=== PATIENT | male | born 1945 | race Caucasian/White ===

== ENCOUNTER → 2017-05-23 | Outpatient (CLI) | payer MEDICARE ==
[~2017-05-23] MED LIST: ALBUTEROL SULF8.5 GM PO; AMIODARONE HCL200 MG PO; AMLODIPINE BESY10 MG; ATORVASTATIN CA10 MG PO; BENTYL10 MG PO; CETIRIZINE HCL10 MG PO; DIOVAN320 MG; LOMOTIL TABLET1 EACH PO; MEDROL4 MG PO; METOPROLOL TAR100 MG; NEXIUM40 M1; OMEPRAZOLE40 MG PO; SPIRIVA18 MCG INH
--- NOTE | 2017-05-23 11:28 | Diagnostic Imaging Report ---
PROCEDURE:THORACIC SPINE 2VW COMPARISON:None. INDICATIONS:BACK PAIN FINDINGS:No acute fracture or dislocation is present. No expansile lytic or sclerotic lesion. A metallic tipped catheter is present with the tip projecting over the expected region and in the thoracic spine. Partially visualized aortic endograft is present in the abdomen. The soft tissues are unremarkable. Kyphotic angulation of the thoracic spine is present. Degenerative changes are evidenced by anterior osteophytosis at multiple levels. He Compression fracture of L1. CONCLUSION: No acute radiographic abnormality. Degenerative changes of the thoracic spine. Age indeterminate compression fracture of L1. Dictated by: Jose Miguel Estrella M.D. on 05/23/2017 at 11:36 Electronically approved by: Jose Miguel Estrella M.D. on 05/23/2017 at 11:36
--- NOTE | 2017-05-23 11:34 | Diagnostic Imaging Report ---
CORRECTION Corrected on: 05/23/2017; Dictated by: Jose Miguel Estrella M.D. on 05/23/2017 at 13:10 Electronically approved by: Jose Miguel Estrella M.D. on 05/23/2017 at 13:10 PROCEDURE:L-SPINE COMPLETE COMPARISON:None. INDICATIONS:BACK PAIN FINDINGS: There are 5 lumbar-type vertebral bodies. Compression fracture of L1 vertebral body with 75% decrease of the vertebral body height. Multilevel degenerative changes evidenced by contrast the right this is bilateral facet arthrosis. Otherwise, the vertebral bodies are well-aligned without evidence of spondylolisthesis. There are no fractures, lytic or blastic lesions. The disc-space heights are well-maintained. The sacroiliac joints are unremarkable. Aortic endograft. CONCLUSION: No acute radiographic abnormality. Age indeterminate compression fracture of the L1 vertebral body. Dictated by: Jose Miguel Estrella M.D. on 05/23/2017 at 11:42 Electronically approved by: Jose Miguel Estrella M.D. on 05/23/2017 at 11:42
== END ==
LOC: RAD 09:14
PROVIDERS: ATTEND Internal Medicine
DX: M54.5 Low back pain (principal); W19.XXXA Unspecified fall, initial encounter
CPT/HCPCS: 72070; 72110

== ENCOUNTER 2018-07-23 18:30 | Emergency (ER) | payer MEDICARE ==
[~2018-07-23] VITALS: Ht 188 cm; Wt 93.0 kg
--- NOTE | 2018-07-23 20:20 | NUR ---
PT TO TAKE HOME MEDS FOR CURRENT ELEVATED BP
--- NOTE | 2018-07-23 21:31 | Diagnostic Imaging Report ---
History:Fall Comparison studies: Head CT on 10/19/2016 Technique: Axial images were obtained from the skull base to the vertex. Coronal and sagittal images reconstructed from the axial data. Dose modulation, iterative reconstruction, and/or weight based adjustment of the mA/kV was utilized to reduce the radiation dose to as low as reasonably achievable. Intravenous contrast: None Findings: Scalp/skull: No abnormalities. Extra-axial spaces: No masses. No fluid collections. Brain sulci: Moderately prominent. Ventricles: Moderate compensatory dilatation. No hydrocephalus. Parenchyma: Diffuse, confluent hypodensities throughout the supratentorial white matter are small vessel ischemic changes. Focal cortical encephalomalacic changes in the right anterior insula extend superiorly to the operculum. This is the result of the acute vascular insult seen in this region in 2017. Focal old cortical insults are also seen in the inferior cerebellar hemispheres. Old lacunar insults are centered in the right thalamocapsular region and in the midportion of the left thalamus. No masses, hemorrhage, acute or additional chronic cortical vascular insults. Sellar/suprasellar region: No abnormalities. Craniocervical junction: Patent foramen magnum. No Chiari one malformation. Incidental findings: Atherosclerotic calcifications in the carotid siphons and vertebral arteries. Nonobstructing retention cyst in the maxillary sinuses. Impression: No acute abnormalities. Chronic findings: 1. Moderate generalized volume loss. 2. Diffuse supratentorial white matter small vessel ischemic changes. 3. Cortical insult in the right anterior insula and overlying operculum (distal right MCA) was acute in 2017) 4. Additional cortical insults in the cerebellar hemispheres and lacunar insults (right thalamocapsular and left mid thalamus) Signed by: Dr. Jameel Aquino M.D. on 07/23/2018 9:28 PM
--- NOTE | 2018-07-23 21:36 | Diagnostic Imaging Report ---
History: Trauma Comparison studies: None Technique: Axial images were obtained through the cervical region.. Coronal and sagittal images reconstructed from the axial data. Dose modulation, iterative reconstruction, and/or weight based adjustment of the mA/kV was utilized to reduce the radiation dose to as low as reasonably achievable. Intravenous contrast: None Findings: Fractures: None. Soft tissues: No gross abnormalities. Atlantoaxial articulation: Intact. Alignment: Increased lordosis. No scoliosis. Cervicomedullary junction: No abnormalities. The foramen magnum is patent. Vertebrae: Bones are moderately demineralized. No infection or neoplasm. Degenerative changes: Mild at the atlantoaxial articulation. No significant changes in the discs. Mild facet arthrosis on the left at C3-4, moderate right at C5-6. Foraminal stenosis, mild left at C3-4, moderate right at C4-5 due to facet and uncovertebral arthrosis. Patent spinal canal. Incidental atherosclerotic calcifications in the carotid bulbs. IMPRESSION: 1. No acute abnormalities. 2. Cannot adequately evaluate for ligament, spinal cord and or vascular abnormalities. 3. Degenerative changes as described. Signed by: Dr. Jameel Aquino M.D. on 07/23/2018 9:33 PM
--- NOTE | 2018-07-23 22:31 | Diagnostic Imaging Report ---
SHOULDER LEFT COMPLETE - 3 views HISTORY: Pain status post fall. COMPARISON: None available. FINDINGS: Rotation/positioning somewhat limits evaluation. Bones: Irregularity of the humeral neck and head to prior traumatic injury, however, cannot exclude nondisplaced fracture. Joints: Mild degenerative changes of the glenohumeral and AC joints. Soft tissues: The soft tissues appear unremarkable. IMPRESSION: Concern for nondisplaced surgical humeral neck fracture. Recommend CT left shoulder without contrast. Signed by: Dr. Yamini Freeman M.D. on 07/23/2018 10:28 PM
--- NOTE | 2018-07-23 22:33 | Diagnostic Imaging Report ---
EXAMINATION: CHEST SINGLE (PORTABLE) INDICATION: Status post fall. COMPARISON: None FINDINGS: Examination somewhat limited due to rotation. TUBES and LINES: None. Pacemaker device projected on the lower lateral left hemithorax. Implantable loop recorder. LUNGS: Bilateral hyperinflation. Right basilar platelike atelectasis. There is no evidence of pneumonia or pulmonary edema. PLEURA: No pleural effusion or pneumothorax. HEART AND MEDIASTINUM: The cardiomediastinal silhouette is unremarkable. BONES AND SOFT TISSUES: Deformity of posterior lateral right sided ribs may represent prior traumatic injury however acute fracture not excluded. Remote left sided rib fractures. UPPER ABDOMEN: No free air under the diaphragm. IMPRESSION: Deformity of posterior lateral right sided ribs may represent prior traumatic injury however acute fracture not excluded. Correlate for right lateral chest wall pain, and if warranted, further evaluation with rib series. Signed by: Dr. Yamini Freeman M.D. on 07/23/2018 10:30 PM
--- NOTE | 2018-07-24 00:11 | Diagnostic Imaging Report ---
Exam: CT scan of the LEFT SHOULDER, WITHOUT intravenous contrast. TECHNIQUE: Standard departmental protocols were used. Post-contrast images were obtained without intravenous injection of contrast. Sagittal and coronal reformatted images were obtained. DLP: 1115.96 HISTORY: Pain status post fall. Fracture suspected on plain radiograph. COMPARISON: None. Correlation with left shoulder radiographs dated 07/23/2018. FINDINGS: The alignment is normal. There is no evidence of a focal bone or joint abnormality. The soft tissues are unremarkable. Emphysematous changes of the visualized left lung. IMPRESSION: No acute osseous abnormality. No fracture as suspected on plain radiograph. Signed by: Dr. Yamini Freeman M.D. on 07/24/2018 12:00 AM
--- NOTE | 2018-07-24 00:16 | Diagnostic Imaging Report ---
EXAM: CT Chest WITHOUT contrast 07/23/2018 10:39 PM INDICATION: Pain status post trauma. COMPARISON: None TECHNIQUE: Chest was scanned utilizing a multidetector helical scanner from the lung apex through the level of the adrenal glands without administration of IV contrast. Absence of intravenous contrast decreases sensitivity for detection of lymphadenopathy and vascular pathology. Coronal and sagittal reformations were obtained. Routine protocol was performed. IV CONTRAST: None RADIATION DOSE: Total DLP: 03/28/1996 mGy*cm Estimated effective dose: (DLP x 0.014 x size factor) mSv COMPLICATIONS: None FINDINGS: LINES/ TUBES: None. LUNGS AND AIRWAYS: Severe bilateral pulmonary emboli or emphysema most severely affecting upper lobes. Mild senescent fibrosis in the lower lobes. Right basilar atelectasis versus scarring associated with mild dilatation of the right hemidiaphragm. Airways are normal. PLEURA: The pleural spaces are clear. HEART AND MEDIASTINUM: The thyroid gland is normal. No mediastinal, hilar or axillary lymphadenopathy. The heart is There is no pericardial effusion. There are mild atherosclerotic calcifications in the aorta and coronary arteries. Dilatation of the ascending aorta measuring 4.9 x 4.8 cm on image 66 series 2. Dilatation of the aortic root measuring 4.6 x 4.8 cm on image 84. Mild dilatation of the descending thoracic aorta measuring 3.1 x 3.2 cm. UPPER ABDOMEN: Limited non-contrast views of the upper abdomen show no right renal atrophy. 4.8 cm abdominal aortic aneurysm status post stent graft placement not well evaluated without contrast. The adrenal glands are normal. BONES: Remote healed left sided rib fractures. Compression fractures of T12 and L1, status post kyphoplasty. L1 fracture is seen. Vertebral alignment. Thoracic kyphosis. There is a dorsal column neurostimulator device with electrodes in the upper thoracic spine. SOFT TISSUES: 3.3 cm oval cystic lesion in the subcutaneous lower anterior right hemithorax just to the right of the midline on image 125 series 2 suggestive of a sebaceous cyst. IMPRESSION: 1. No acute thoracic abnormality. 2. Severe pulmonary emphysema. 3. 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 Dilatation of the aortic root. Signed by: Dr. Yamini Freeman M.D. on 07/24/2018 12:12 AM
[2018-07-24 01:36] VITALS: BP 143/74
== END 2018-07-24 02:30 | disposition home or self-care (01) ==
LOC: ER 18:30
DX: S00.83XA Contusion of other part of head, initial encounter (principal); S40.012A Contusion of left shoulder, initial encounter; S20.229A Contusion of unspecified back wall of thorax, initial encounter; M54.6 Pain in thoracic spine; W01.0XXA Fall on same level from slipping, tripping and stumbling without subsequent striking against object, initial encounter; Y93.01 Activity, walking, marching and hiking; Y92.008 Other place in unspecified non-institutional (private) residence as the place of occurrence of the external cause; J44.9 Chronic obstructive pulmonary disease, unspecified; I50.9 Heart failure, unspecified; I48.91 Unspecified atrial fibrillation; E78.5 Hyperlipidemia, unspecified; F41.9 Anxiety disorder, unspecified; Z86.73 Personal history of transient ischemic attack (TIA), and cerebral infarction without residual deficits
CPT/HCPCS: 70450; 71045; 71250; 72125; 99283